=== PATIENT | female | born 1950 | race African-American/Black ===

== ENCOUNTER 2019-03-29 18:46 | Inpatient (IN) | payer MEDICARE, MEDICAID ==
[~2019-03-29] VITALS: Ht 160 cm; Wt 82.6 kg
[~2019-03-29 18:46] MED LIST: ABIL5 PO; AMIT25TA9 PO; AMLO10TA80 PO; ASPI-1160 PO; CITA20TA75 PO; DIAZ10TA4 PO; DIPH25CA83 PO; DIVA-75 PO; DIVAL250 PO; GABA300C PO; INSASP SQ; LISI10TA5 PO; LORA1TAB PO; MELO-106 PO; ONDA4TAB5 PO; OXYC30TA89 PO; QUET100T PO; TIOT18CA3 IH; TRAM50TA PO; ZOLP10TA6 PO
[2019-03-29] MEDS ORDERED: NITROGLYCERIN 0.4MG TABLET SL SL PRN (19:15)
[2019-03-29] MEDS ORDERED: ASPIRIN 81MG TABLET PO ONE (19:15)
[2019-03-29 20:08] LABS: BASOPHILS % 1.1 % (0.0-2.0); EOSINOPHILS % 4.5 % (0.0-5.0); HEMATOCRIT. 40.9 % (36.0-48.0); HEMOGLOBIN. 13.6 g/dL (12.0-16.0); LYMPHOCYTES % 38.3 % (20.0-50.0); MEAN CORPUSCULAR HEMOGLOBIN 31.4 pg (28.0-32.0); MEAN CORPUSCULAR VOLUME 94.3 fL (81.0-99.0); MEAN PLATELET VOLUME 8.7 fl (7.4-10.4); MONOCYTES % 10.4 % (2.0-8.0); NEUTROPHILS % 45.7 % (40.0-76.0); PLATELET 239 x1000/uL (130-400); RED BLOOD CELL COUNT 4.34 mill/uL (4.2-5.4); RED CELL DISTRIBUTION WIDTH 13.5 % (11.6-14.6)
[2019-03-29 20:14] LABS: CHLORIDE 109 mEq/L (98-107)
[2019-03-29] MEDS ORDERED: ONDANSETRON HCL 4MG/2ML INJ IV STA (21:37)
[2019-03-29] MEDS ORDERED: MORPHINE SULFATE 4 MG/ML CPJ (NOT FOR IM USE) IV STA (21:37)
[2019-03-29] MEDS ORDERED: ACETAMINOPHEN 650MG SUPP PR PRN (23:30)
[2019-03-29] MEDS ORDERED: HYDROCODONE/ACETAMINOPHEN 10/325MG TABLET PO PRN (23:30)
[2019-03-29] MEDS ORDERED: NA PHOS,M-B/NA PHOS,DI-BA ENEMA 118ML PR PRN (23:30)
[2019-03-29] MEDS ORDERED: DOCUSATE SODIUM 100MG CAPSULE PO PRN (23:30)
[2019-03-29] MEDS ORDERED: MAGNESIUM/ALUMINUM HYDROXIDE/SIMETHICONE 30ML UDC PO PRN (23:30)
[2019-03-29] MEDS ORDERED: ACETAMINOPHEN 650MG/20.3ML UDC GT PRN (23:30)
[2019-03-29] MEDS ORDERED: DIPHENHYDRAMINE 50MG/ML VIAL IV PRN (23:30)
[2019-03-29] MEDS ORDERED: ACETAMINOPHEN 325MG TABLET PO PRN (23:30)
[2019-03-29] MEDS ORDERED: CLONIDINE 0.1MG TABLET PO PRN (23:30)
[2019-03-29] MEDS ORDERED: GUAIFENESIN 200MG/10ML SUGAR FREE UDC PO PRN (23:30)
[2019-03-30] MEDS ORDERED: ONDANSETRON HCL 4MG/2ML INJ IV ONE (04:15)
[2019-03-30] MEDS ORDERED: MORPHINE SULFATE 4 MG/ML CPJ (NOT FOR IM USE) IV ONE (04:15)
[2019-03-30 04:52] LABS: BASOPHILS % 0.9 % (0.0-2.0); HEMATOCRIT. 40.6 % (36.0-48.0); HEMOGLOBIN. 13.4 g/dL (12.0-16.0); MEAN CORPUSCULAR HEMOGLOBIN 31.3 pg (28.0-32.0); MEAN CORPUSCULAR VOLUME 94.7 fL (81.0-99.0); MEAN PLATELET VOLUME 8.9 fl (7.4-10.4); MONOCYTES % 11.4 % (2.0-8.0); NEUTROPHILS % 31.7 % (40.0-76.0); PLATELET 234 x1000/uL (130-400); RED BLOOD CELL COUNT 4.29 mill/uL (4.2-5.4); RED CELL DISTRIBUTION WIDTH 14.1 % (11.6-14.6)
[2019-03-30 05:20] LABS: CHLORIDE 107 mEq/L (98-107)
[2019-03-30 05:32] LABS: LDL CHOLESTEROL 82 mg/dL (5-100)
[2019-03-30 05:33] LABS: CREATINE KINASE 104 IU/L (26-192); HDL CHOLESTEROL 66 mg/dL (40-59)
[2019-03-30 05:37] LABS: CREATINE KINASE MB FRACTION 1.4 ng/mL (0.5-3.6)
[2019-03-30 05:39] LABS: CLARITY URINE CLOUDY (CLEAR); COLOR URINE YELLOW (YELLOW); KETONES URINE NEGATIVE (NEGATIVE); LEUKOCYTE ESTERASE URINE 1+ (NEGATIVE); NITRITE URINE NEGATIVE (NEGATIVE); OCCULT BLOOD URINE NEGATIVE (NEGATIVE); PH URINE 5.5 (4.5-8.0); PROTEIN URINE NEGATIVE (NEGATIVE); SPECIFIC GRAVITY URINE 1.019 (1.005-1.030); UROBILINOGEN URINE 0.2 E.U./dL (0.2-1.0)
[2019-03-30] MEDS: SODIUM CHLORIDE 0.9% INJ 3ML FLUSH IVF SCH ×3 (06:29→20:40)
[2019-03-30] MEDS: ASPIRIN 81MG EC TABLET PO SCH (09:11)
[2019-03-30] MEDS: MORPHINE SULFATE 4 MG/ML CPJ (NOT FOR IM USE) IV PRN ×4 (09:13→18:22)
[2019-03-30] MEDS: ONDANSETRON HCL 4MG/2ML INJ IV PRN ×3 (09:17→18:23)
[2019-03-30 10:14] LABS: T4 FREE 1.2 ng/dL (0.76-1.46)
[2019-03-30 15:30] VITALS: BP 110/70
[2019-03-30 15:36] LABS: CREATINE KINASE 97 IU/L (26-192)
[2019-03-30 15:37] LABS: CREATINE KINASE MB FRACTION 1.3 ng/mL (0.5-3.6)
[2019-03-30 16:28] VITALS: BP 110/70
[2019-03-30] MEDS ORDERED: INFLUENZA VIRUS VACCINE(AFLURIA) 0.5ML SYR IM ONE (17:30)
[2019-03-30] MEDS ORDERED: DEXTROSE 50% WATER 50ML SYRINGE IV PRN (17:30)
[2019-03-30 20:00] VITALS: BP 127/62
[2019-03-30] MEDS: BLOOD SUGAR DIAGNOSTIC STRIP TEST SCH (20:02)
[2019-03-30] MEDS: INSULIN LISPRO 100 UNITS/ML SUBCUT SCH (20:42)
[2019-03-31] MEDS: MORPHINE SULFATE 4 MG/ML CPJ (NOT FOR IM USE) IV PRN ×3 (01:07→15:09)
[2019-03-31] MEDS ORDERED: CEFTRIAXONE 1 G PREMIX 50 ML IV SCH (02:00)
[2019-03-31 04:00] VITALS: BP 135/80
[2019-03-31] MEDS: SODIUM CHLORIDE 0.9% INJ 3ML FLUSH IVF SCH ×2 (05:16→14:42)
[2019-03-31] MEDS: BLOOD SUGAR DIAGNOSTIC STRIP TEST SCH ×2 (06:20→12:10)
[2019-03-31] MEDS: INSULIN LISPRO 100 UNITS/ML SUBCUT SCH ×2 (06:46→12:40)
[2019-03-31 08:00] VITALS: BP 122/59
[2019-03-31] MEDS: ASPIRIN 81MG EC TABLET PO SCH (08:26)
[2019-03-31] MEDS: ONDANSETRON HCL 4MG/2ML INJ IV PRN (08:39)
[2019-03-31] MEDS ORDERED: ENOXAPARIN 40MG/0.4ML SYR SUBCUT SCH (09:00)
[2019-03-31 12:00] VITALS: BP 129/64
[2019-03-31] MEDS ORDERED: LEVO500T2 MT (15:30)
[2019-03-31 16:00] VITALS: BP 124/66
[2019-03-31 17:46] VITALS: BP 124/66
== END 2019-03-31 18:44 | disposition home or self-care (01) | DRG 194 ==
LOC: ER 18:46 → 8WST 21:38 → EDBEDREQTM 21:44 → EDBEDREQ 21:44 → ENRESERV 03-30 13:52
PROVIDERS: ADMIT Family Medicine; ATTEND Family Medicine
DX: J18.9 Pneumonia, unspecified organism (principal); N39.0 Urinary tract infection, site not specified; J44.0 Chronic obstructive pulmonary disease with (acute) lower respiratory infection; E78.5 Hyperlipidemia, unspecified; E11.9 Type 2 diabetes mellitus without complications; I10 Essential (primary) hypertension; Z96.649 Presence of unspecified artificial hip joint; I25.10 Atherosclerotic heart disease of native coronary artery without angina pectoris; M19.90 Unspecified osteoarthritis, unspecified site; Z88.8 Allergy status to other drugs, medicaments and biological substances; Z86.73 Personal history of transient ischemic attack (TIA), and cerebral infarction without residual deficits; Z79.899 Other long term (current) drug therapy; Z79.4 Long term (current) use of insulin
CPT/HCPCS: 36415; 71045; 80053; 80061; 81003; 82550; 82553; 82962; 83036; 83880; 84439; 84443; 84484; 85025; 85379; 93005; 93306; 99285; J0696; J1650; J2270; J2405

== ENCOUNTER 2019-04-07 20:40 | Inpatient (IN) | payer MEDICARE, MEDICAID ==
[~2019-04-07] VITALS: Ht 160 cm; Wt 84.8 kg
[~2019-04-07 20:40] MED LIST changes: +LEVO500T2 MT
[2019-04-07 22:50] LABS: BASOPHILS % 0.7 % (0.0-2.0); HEMOGLOBIN. 13.2 g/dL (12.0-16.0); LYMPHOCYTES % 27.2 % (20.0-50.0); MEAN CORPUSCULAR VOLUME 94.6 fL (81.0-99.0); MEAN PLATELET VOLUME 9.3 fl (7.4-10.4); MONOCYTES % 6.9 % (2.0-8.0); NEUTROPHILS % 64.2 % (40.0-76.0); PLATELET 266 x1000/uL (130-400); RED BLOOD CELL COUNT 4.13 mill/uL (4.2-5.4); RED CELL DISTRIBUTION WIDTH 13.9 % (11.6-14.6)
[2019-04-07 22:51] LABS: CHLORIDE 104 mEq/L (98-107)
[2019-04-07] MEDS ORDERED: KETOROLAC 15MG/ML VIAL IV ONE (23:00)
[2019-04-07] MEDS ORDERED: ALPRAZOLAM 0.25 MG TABLET PO ONE (23:15)
[2019-04-08] MEDS ORDERED: SODIUM CHLORIDE 0.9% 1,000 ML IV ONE
[2019-04-08] MEDS ORDERED: LEVOFLOXACIN 500MG PREMIX 100 ML IV ONE (02:45)
[2019-04-08 08:15] VITALS: BP 109/54
[2019-04-08 10:28] VITALS: BP 109/54
[2019-04-08] MEDS ORDERED: ACETAMINOPHEN 325MG TABLET PO PRN (10:30)
[2019-04-08] MEDS ORDERED: IPRATROPIUM/ALBUTEROL 0.5-3(2.5)MG/3ML NEB HHN PRN (10:30)
[2019-04-08] MEDS ORDERED: ONDANSETRON HCL 4MG/2ML INJ IV PRN (10:30)
[2019-04-08] MEDS ORDERED: BENZONATATE 100MG CAPSULE PO PRN (10:30)
[2019-04-08] MEDS ORDERED: LORAZEPAM 1MG TABLET PO PRN (11:15)
[2019-04-08] MEDS ORDERED: TRAMADOL 50MG TABLET PO PRN ×2 (11:15→11:45)
[2019-04-08] MEDS ORDERED: ONDANSETRON HCL 4MG TABLET PO PRN (11:15)
[2019-04-08] MEDS ORDERED: DEXTROSE 50% WATER 50ML SYRINGE IV PRN (11:30)
[2019-04-08] MEDS ORDERED: HYDROCODONE/ACETAMINOPHEN 10/325MG TABLET PO PRN (11:30)
[2019-04-08] MEDS: SODIUM CHLORIDE 0.9% 1,000 ML IV SCH (11:40)
[2019-04-08] MEDS: INSULIN LISPRO 100 UNITS/ML SUBCUT SCH ×3 (11:53→20:50)
[2019-04-08] MEDS: BLOOD SUGAR DIAGNOSTIC STRIP TEST SCH ×3 (11:53→20:50)
[2019-04-08 12:00] VITALS: BP_SYST 104; BP_SYST 148; BP_DIAS 38; BP_DIAS 62
[2019-04-08] MEDS: LORAZEPAM 1MG TABLET PO PRN ×2 (12:02→22:34)
[2019-04-08] MEDS: ENOXAPARIN 30MG/0.3ML SYR SUBCUT SCH (12:02)
[2019-04-08] MEDS: ASPIRIN 81MG TABLET PO SCH (12:03)
[2019-04-08] MEDS: BUDESONIDE 0.5MG/2ML NEB HHN SCH (12:33)
[2019-04-08 16:00] VITALS: BP 99/47
[2019-04-08] MEDS: GABAPENTIN 300MG CAPSULE PO SCH (18:17)
[2019-04-08 20:00] VITALS: BP 95/35
[2019-04-08 20:47] LABS: CLARITY URINE CLEAR (CLEAR); COLOR URINE YELLOW (YELLOW); KETONES URINE NEGATIVE (NEGATIVE); LEUKOCYTE ESTERASE URINE 2+ (NEGATIVE); NITRITE URINE NEGATIVE (NEGATIVE); OCCULT BLOOD URINE NEGATIVE (NEGATIVE); PH URINE 5.5 (4.5-8.0); PROTEIN URINE NEGATIVE (NEGATIVE); SPECIFIC GRAVITY URINE 1.033 (1.005-1.030); UROBILINOGEN URINE 0.2 E.U./dL (0.2-1.0)
[2019-04-08] MEDS: DIVALPROEX SODIUM 250MG DR TABLET PO SCH (21:48)
[2019-04-09] VITALS: BP 105/37
[2019-04-09] MEDS: BUDESONIDE 0.5MG/2ML NEB HHN SCH ×3 (00:28→20:20)
[2019-04-09] MEDS: SODIUM CHLORIDE 0.9% 1,000 ML IV SCH ×2 (00:37→13:10)
[2019-04-09 04:00] VITALS: BP 112/48
[2019-04-09] MEDS: BLOOD SUGAR DIAGNOSTIC STRIP TEST SCH ×4 (06:59→21:46)
[2019-04-09] MEDS: INSULIN LISPRO 100 UNITS/ML SUBCUT SCH ×4 (06:59→21:00)
[2019-04-09 08:00] VITALS: BP 111/40
[2019-04-09] MEDS: AMITRIPTYLINE 25MG TABLET PO SCH (09:10)
[2019-04-09] MEDS: ASPIRIN 81MG TABLET PO SCH (09:10)
[2019-04-09] MEDS: ARIPIPRAZOLE 5MG TABLET PO SCH (09:10)
[2019-04-09] MEDS: GABAPENTIN 300MG CAPSULE PO SCH ×2 (09:11→17:51)
[2019-04-09 10:17] LABS: *AMPHETAMINES SCREEN URINE NEGATIVE (NEGATIVE); *BARBITURATES SCREEN URINE NEGATIVE (NEGATIVE); *BENZODIAZEPINES SCREEN URINE NEGATIVE (NEGATIVE); *COCAINE SCREEN URINE NEGATIVE (NEGATIVE); OPIATES URINE SCREEN PRESUMTIVE POSITIVE (NEGATIVE)
[2019-04-09 10:18] LABS: CANNABINOID URINE SCREEN NEGATIVE (NEGATIVE); PHENCYCLIDINE URINE SCREEN NEGATIVE (NEGATIVE)
[2019-04-09 10:26] LABS: METHADONE URINE SCREEN NEGATIVE (NEGATIVE)
[2019-04-09 12:00] VITALS: BP 116/54
[2019-04-09] MEDS: ENOXAPARIN 30MG/0.3ML SYR SUBCUT SCH (13:19)
[2019-04-09] MEDS: OXYCODONE HCL 10MG TABLET SR 12HR PO SCH (15:21)
[2019-04-09] MEDS ORDERED: CEFTRIAXONE 1 G PREMIX 50 ML IV SCH (15:30)
[2019-04-09 16:00] VITALS: BP 140/59
[2019-04-09 16:07] LABS: EOSINOPHILS % 3.7 % (0.0-5.0); HEMATOCRIT. 37.7 % (36.0-48.0); HEMOGLOBIN. 12.8 g/dL (12.0-16.0); LYMPHOCYTES % 56.9 % (20.0-50.0); MEAN CORPUSCULAR HEMOGLOBIN 31.9 pg (28.0-32.0); MEAN CORPUSCULAR VOLUME 94.4 fL (81.0-99.0); MEAN PLATELET VOLUME 9.4 fl (7.4-10.4); MONOCYTES % 5.6 % (2.0-8.0); NEUTROPHILS % 32.8 % (40.0-76.0); PLATELET 209 x1000/uL (130-400); RED CELL DISTRIBUTION WIDTH 13.7 % (11.6-14.6)
[2019-04-09 16:32] LABS: CHLORIDE 110 mEq/L (98-107)
[2019-04-09] MEDS: NICOTINE 21MG PATCH TD SCH (17:51)
[2019-04-09 20:00] VITALS: BP 119/40
[2019-04-09] MEDS ORDERED: OXYCODONE HCL 10MG TABLET SR 12HR PO SCH (21:00)
[2019-04-09] MEDS: DIVALPROEX SODIUM 250MG DR TABLET PO SCH (21:55)
[2019-04-09] MEDS: LORAZEPAM 1MG TABLET PO PRN (22:44)
[2019-04-10] VITALS: BP 113/42
[2019-04-10] MEDS: SODIUM CHLORIDE 0.9% 1,000 ML IV SCH (02:30)
[2019-04-10 04:00] VITALS: BP 128/56
[2019-04-10] MEDS: OXYCODONE HCL 10MG TABLET SR 12HR PO SCH (06:38)
[2019-04-10] MEDS: INSULIN LISPRO 100 UNITS/ML SUBCUT SCH ×2 (07:07→12:15)
[2019-04-10] MEDS: BLOOD SUGAR DIAGNOSTIC STRIP TEST SCH ×2 (07:07→11:45)
[2019-04-10 08:00] VITALS: BP 127/70
[2019-04-10] MEDS: GABAPENTIN 300MG CAPSULE PO SCH (08:11)
[2019-04-10] MEDS: ARIPIPRAZOLE 5MG TABLET PO SCH (08:11)
[2019-04-10] MEDS: AMITRIPTYLINE 25MG TABLET PO SCH (08:11)
[2019-04-10] MEDS: ASPIRIN 81MG TABLET PO SCH (08:11)
[2019-04-10] MEDS: NICOTINE 21MG PATCH TD SCH (08:15)
[2019-04-10] MEDS ORDERED: LEVO500T2 MT (10:52)
[2019-04-10 12:00] VITALS: BP 107/53
[2019-04-10] MEDS: ENOXAPARIN 30MG/0.3ML SYR SUBCUT SCH (12:50)
[2019-04-10 13:07] VITALS: BP 107/57
== END 2019-04-10 14:32 | disposition home or self-care (01) | DRG 190 ==
LOC: ER 20:40 → 5WST 04-08 02:34 → ENRESERV 04-08 07:41
PROVIDERS: ADMIT Internal Medicine; ATTEND Internal Medicine
DX: J44.1 Chronic obstructive pulmonary disease with (acute) exacerbation (principal); N17.0 Acute kidney failure with tubular necrosis; E87.1 Hypo-osmolality and hyponatremia; E11.9 Type 2 diabetes mellitus without complications; F17.210 Nicotine dependence, cigarettes, uncomplicated; Z96.649 Presence of unspecified artificial hip joint; F99 Mental disorder, not otherwise specified; Z53.29 Procedure and treatment not carried out because of patient's decision for other reasons; I25.10 Atherosclerotic heart disease of native coronary artery without angina pectoris; J06.9 Acute upper respiratory infection, unspecified; M19.90 Unspecified osteoarthritis, unspecified site; I11.9 Hypertensive heart disease without heart failure; Z86.73 Personal history of transient ischemic attack (TIA), and cerebral infarction without residual deficits; Z87.01 Personal history of pneumonia (recurrent); Z88.8 Allergy status to other drugs, medicaments and biological substances; Z79.899 Other long term (current) drug therapy; Z90.89 Acquired absence of other organs
CPT/HCPCS: 36415; 71045; 80048; 80053; 80305; 81003; 82962; 83880; 84484; 85025; 94640; 97162; 99285; J0696; J1650; J1885; J1956; J7030; J7626